=== PATIENT | female | born 1980 | race Hispanic/Latino ===

== ENCOUNTER 2019-09-09 13:09 | Emergency (ER) | payer SELFPAY ==
[2019-09-09] MEDS ORDERED: IPRATROPIUM/ALBUTEROL SULFATE 3 ML SOLUTION IH ONE (13:54)
[2019-09-09 13:56] LABS: RAPID GROUP A STREP NEGATIVE (NEGATIVE)
== END 2019-09-09 14:50 | disposition home or self-care (01) ==
LOC: EDH 13:09
DX: B34.9 Viral infection, unspecified (principal)
CPT/HCPCS: 71046; 87804; 87880; 94640